=== PATIENT | female | born 1950 | race Caucasian/White ===

== ENCOUNTER 2018-03-23 08:39 | Emergency (ER) | payer MEDICARE, OTHER ==
[2018-03-23 09:03] VITALS: BP 166/71
[2018-03-23] MEDS ORDERED: Take Home: Acetaminophen/HYDROcodone 325-10 MG, 5 Tab Pack PO ONE (09:09)
--- NOTE | 2018-03-23 09:15 | EDM.PDOC ---
ED HPI GENERAL MEDICAL PROBLEM - General Chief Complaint: Lower Extremity Injury/Pain Stated Complaint: HIP/KNEE PAIN L Time Seen by Provider: 03/23/18 09:02 Source of Information: Reports: Patient, Old Records, RN, RN Notes Reviewed History Limitations: Reports: No Limitations - History of Present Illness INITIAL COMMENTS - FREE TEXT/NARRATIVE: Patient presents to the ED at [facility] with exacerbation of chronic left hip and knee pain. She states she has been taking OTC medications without much relief of her pain. She has had hip injections in the past which seem to work ok. Her last injection was December 2017. She states she is overdue for an injection. She denies any trouble with ambulation. No bowel or bladder problems. She denies any numbness, tingling, or paresthesia to any extremity. She states she know she needs a hip replacement in the near future. Otherwise, no concerns. She would like her pain medication refilled today until she can get in and see her Primary. Duration: Chronic Left Hip Pain Score (Numeric/FACES): 6 - Related Data Allergies Allergy/AdvReac Type Severity Reaction Status Date / Time atorvastatin calcium Allergy Muscle Verified 03/23/18 09:06 [From Lipitor] Aches codeine Allergy Rash Verified 03/23/18 09:06 Penicillins Allergy Rash Verified 03/23/18 09:06 Sulfa (Sulfonamide Allergy Rash Verified 03/23/18 09:06 Antibiotics) Home Meds: Home Meds Albuterol [Ventolin HFA] 2 puff Q4H PRN 11/09/14 [History] Aspirin [Halfprin] 81 mg PO DAILY 11/09/14 [History] Calcium Carbonate/Vitamin D3 [Calcium 500-Vit D3 400 Tablet] 1 tab DAILY [History] Citalopram Hydrobromide [Celexa] 20 mg PO DAILY 11/09/14 [History] Fluticasone Propionate [Flonase] 2 sprays DAILY 11/09/14 [History] Fluticasone/Salmeterol [Advair 100-50] 1 puff DAILY 11/09/14 [History] Glucosamine/D3/[place]oswellia Yeni [Glucosamine Complex Tablet] 1 tab DAILY [History] Hydrocodone/Acetaminophen [[place] 10-325] 1 tab Q4H PRN 11/09/14 [History] Lisinopril 1 tab DAILY 11/09/14 [History] Montelukast Sodium [Singulair] 1 tab DAILY 11/09/14 [History] Multivitamin with Minerals [Multiple Vitamin] 1 tab DAILY 11/09/14 [History] [place]-3 Fatty Acids [[place]-3] 1 tab DAILY 11/09/14 [History] Simvastatin [Zocor] 20 mg PO DAILY 11/09/14 [History] hydroCHLOROthiazide [Hydrochlorothiazide] 12.5 mg PO DAILY 11/09/14 [History] Albuterol/Ipratropium [DuoNeb 3.0-0.5 MG/3 ML] 3 ml .XX Q8HR #30 neb 05/22/15 [ Rx] Albuterol/Ipratropium [DuoNeb 3.0-0.5 MG/3 ML] 3 ml NEB ONETIME #1 neb 05/22/15 [Rx] predniSONE [Prednisone] 40 mg PO DAILY #7 tab.ds.pk 05/22/15 [Rx] Past Medical History 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 Denies: Numbness, Paresthesia, Tingling ED EXAM, GENERAL - Physical Exam Exam: See Below Exam Limited By: No Limitations General Appearance: Alert, No Apparent Distress Respiratory/Chest: No Respiratory Distress, Lungs Clear, Normal Breath Sounds Cardiovascular: Normal Peripheral Pulses, Regular Rate, Rhythm Back Exam: Normal Inspection Extremities: Normal Inspection Neurological: Alert, Oriented Skin Exam: Warm, Dry, Intact, Normal Color Course - Vital Signs Last Recorded V/S: Last Vital Signs Temp 37.1 C 03/23/18 08:45 Pulse 72 03/23/18 08:45 Resp 18 03/23/18 08:45 BP 166/71 H 03/23/18 08:45 Pulse Ox 96 08/12/18 08:45 - Orders/Labs/Meds Orders: Active Orders 24 hr Category Date Time Status Acetaminophen/HYDROcodone [Take Home: Acetaminophen/ Med 03/23/18 09:09 Once HYDROcodone 325-10MG] 1 packet PO ONETIME ONE Departure - Departure Time of Disposition: 09:15 Disposition: Home, Self-Care 01 Condition: Good Clinical Impression: Chronic pain syndrome, Arthritis of left hip, Arthritis of knee, left - Discharge Information *PRESCRIPTION DRUG MONITORING PROGRAM REVIEWED*: Yes *COPY OF PRESCRIPTION DRUG MONITORING REPORT IN PATIENT KARRIE: Yes Instructions: Osteoarthritis, Chronic Pain, Adult, Acetaminophen; Hydrocodone tablets or capsules Referrals: Ericka Manuel [employer] [Ordering Only Provider] - Additional Instructions: 1. Stay well hydrated 2. Rest and relax today 3. See your Primary as symptoms warrant 4. Call us with any questions or concerns - Problem List Review Problem List Initiated/Reviewed/Updated: Yes - My Orders Last 24 Hours: My Active Orders 03/23/18 09:09 Acetaminophen/HYDROcodone [Take Home: Acetaminophen/HYDROcodone 325-10MG] 1 packet PO ONETIME ONE - Assessment/Plan Last 24 Hours: My Active Orders 03/23/18 09:09 Acetaminophen/HYDROcodone [Take Home: Acetaminophen/HYDROcodone 325-10MG] 1 packet PO ONETIME ONE Assessment:: Acute on Chronic Pain Syndrome Left hip Osteoarthritis Primary arthritis of left knee Plan: Will give a one time refill of narcotic pain medication. Patient states she will contact her PCP tomorrow for additional assistance. Recommend rest and relaxation today.
== END 2018-03-23 09:27 | disposition home or self-care (01) ==
LOC: VM.ED 08:39
DX: G89.4 Chronic pain syndrome (principal); M16.12 Unilateral primary osteoarthritis, left hip; M17.12 Unilateral primary osteoarthritis, left knee; Z79.82 Long term (current) use of aspirin; Z79.899 Other long term (current) drug therapy; Z88.0 Allergy status to penicillin; Z88.2 Allergy status to sulfonamides; Z88.5 Allergy status to narcotic agent; Z88.8 Allergy status to other drugs, medicaments and biological substances
CPT/HCPCS: 99282; 99283; A9270

== ENCOUNTER 2021-03-07 12:28 | Emergency (ER) | payer MEDICARE, OTHER ==
[2021-03-07] MEDS ORDERED: Sodium Chloride 0.9% 10 ML Syringe FLUSH PRN (12:40)
[2021-03-07] MEDS: Nitroglycerin 0.4 MG Tab.SL SL ONE ×2 (12:52→15:13)
[2021-03-07] MEDS: Sodium Chloride 0.9% 1,000 ML IV SCH (12:52)
--- NOTE | 2021-03-07 12:57 | EDM.PDOC ---
ED HPI GENERAL MEDICAL PROBLEM - General Time Seen by Provider: 03/07/21 12:52 Source of Information: Reports: Patient, EMS History Limitations: Reports: No Limitations - History of Present Illness INITIAL COMMENTS - FREE TEXT/NARRATIVE: Pt. presents to ER with complaints of anterior chest pain with radiation into her R posterolateral mid chest. Pt. states that she had been outside at onset of symptoms. States that she walked a short distance to her car, otherwise denies any other exertion. She states that the discomfort was acute in onset. She states that the discomfort is constant and not made worse with palpation. Denies any radiation into the jaw, arms, or neck. She states that she is nauseated. She was diaphoretic, but the temperature today in in the 90s. EMS was summoned. 12 lead EKG was performed and did not show any acute ST or T wave abnormality. Pt. did take aspirin at home. EMS gave the patient nitro which helped with the discomfort. She states that she has not recently been ill. Denies any cough or chest congestion. No sore throat or rhinorrhea. She states that she has not had any cough or chest congestion. She has a history of asthma but states that this has been stable recently. Pt. denies any history of similar pain in the past. Denies any cardiac history. It does not appear that she has ever had a stress test, and I am unable to locate an old EKG in either her clinic or ER chart. Onset: Today Onset Date: 03/07/21 Location: Reports: Chest, Back Quality: Reports: Ache, Pressure Associated Symptoms: Reports: Chest Pain, Diaphoresis. Denies: Cough, Fever/Chills - Related Data Allergies Allergy/AdvReac Type Severity Reaction Status Date / Time codeine Allergy Rash Verified 03/23/18 09:06 Penicillins Allergy Rash Verified 03/23/18 09:06 Sulfa (Sulfonamide Allergy Rash Verified 03/23/18 09:06 Antibiotics) atorvastatin calcium AdvReac Muscle Verified 03/07/21 13:51 [From Lipitor] Aches Home Meds: Home Meds Albuterol [Ventolin HFA] 2 puff IH Q4H PRN 11/09/14 [History] Aspirin [Halfprin] 81 mg PO DAILY 11/09/14 [History] Calcium Carbonate/Vitamin D3 [Calcium 500-Vit D3 400 Tablet] 1 tab PO DAILY 11/09/14 [History] Citalopram Hydrobromide [Celexa] 20 mg PO DAILY 11/09/14 [History] Fluticasone Propionate [Flonase] 2 sprays IN DAILY 11/09/14 [History] Glucosamine/D3/Boswellia Yeni [Glucosamine Complex Tablet] 1 tab PO DAILY 11/09/14 [History] Hydrocodone/Acetaminophen [[place] 10-325] 1 tab PO Q4H PRN 11/09/14 [History] Montelukast Sodium [Singulair] 1 tab PO DAILY 11/09/14 [History] Multivitamin with Minerals [Multiple Vitamin] 1 tab PO DAILY 11/09/14 [History] [place]-3 Fatty Acids [[place]-3] 1 tab PO DAILY 11/09/14 [History] Simvastatin [Zocor] 20 mg PO DAILY 11/09/14 [History] hydroCHLOROthiazide [Hydrochlorothiazide] 12.5 mg PO DAILY 11/09/14 [History] Albuterol/Ipratropium [DuoNeb 3.0-0.5 MG/3 ML] 3 ml .XX Q8HR #30 neb 05/22/15 [Rx] Acetaminophen [Tylenol Extra Strength] 500 mg PO Q6H 03/23/18 [History] Budesonide/Formoterol Fumarate [Symbicort 160-4.5 Mcg Inhaler] 2 puff IH BID 03/23/18 [History] Ibuprofen [Advil] 400 mg PO Q6H 03/23/18 [History] amLODIPine Besylate [Norvasc] 10 mg PO DAILY 03/23/18 [History] Past Medical History Cardiovascular History: Reports: High Cholesterol, Hypertension Respiratory History: Reports: Asthma, Sleep Apnea 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 removed due to cysts Musculoskeletal History: Reports: Arthritis, Osteoarthritis Other Musculoskeletal History: cortisone injections to left hip every 3 months Psychiatric History: Reports: Anxiety, Depression Endocrine/Metabolic History: Reports: Obesity/BMI 30+ - Past Surgical History Other HEENT Surgeries/Procedures: sinus surgery Social & Family History - Living Situation & Occupation Occupation: Retired ED ROS GENERAL - Review of Systems Review Of Systems: See Below Constitutional: Reports: No Symptoms HEENT: Reports: No Symptoms Respiratory: Denies: Shortness of Breath, Wheezing, Cough Cardiovascular: Reports: Chest Pain. Denies: Dyspnea on Exertion, Lightheadedness, Orthopnea, Palpitations Endocrine: Reports: No Symptoms GI/Abdominal: Reports: No Symptoms : Reports: No Symptoms Musculoskeletal: Reports: Back Pain Skin: Reports: No Symptoms Neurological: Reports: No Symptoms Psychiatric: Reports: No Symptoms Hematologic/Lymphatic: Reports: No Symptoms Immunologic: Reports: No Symptoms ED EXAM, GENERAL - Physical Exam Exam: See Below Exam Limited By: No Limitations General Appearance: Alert, WD/WN, No Apparent Distress Head: Atraumatic, Normocephalic Neck: Normal Inspection, Supple, Non-Tender Respiratory/Chest: No Respiratory Distress, Lungs Clear, Normal Breath Sounds, No Accessory Muscle Use, Chest Non-Tender Cardiovascular: Normal Peripheral Pulses, Regular Rate, Rhythm, No JVD, No Murmur, No Rub Peripheral Pulses: 4+: Radial (L) GI/Abdominal: Soft, Non-Tender, No Distention, No Mass (Female) Exam: Deferred Rectal (Female) Exam: Deferred Extremities: Normal Inspection, Normal Range of Motion, Non-Tender, No Pedal Edema, Normal Capillary Refill Neurological: Alert, Oriented, CN II-XII Intact, Normal Cognition, Normal Reflexes, No Motor/Sensory Deficits Psychiatric: Normal Affect, Normal Mood Skin Exam: Warm, Dry, Intact, Normal Color, No Rash Lymphatic: No Adenopathy #1 Interpretation Rhythm: NSR [place]: Normal P-Wave: Present QRS: Normal ST-T: Normal QT: Normal Course - Vital Signs Last Recorded V/S: Last Vital Signs Temp Pulse Resp BP 150/74 H 03/07/21 12:52 Pulse Ox - Orders/Labs/Meds Orders: Active Orders 24 hr Category Date Time Status EKG Documentation Completion [RC] STAT Care 03/07/21 12:40 Active Sodium Chloride 0.9% [Normal Saline] 1,000 ml Med 03/07/21 13:00 Active IV ASDIRECTED Sodium Chloride 0.9% [Saline Flush] Med 03/07/21 12:40 Active 10 ml FLUSH ASDIRECTED PRN Peripheral IV Insertion Adult [OM.PC] Routine Oth 03/07/21 12:41 Ordered Medication Orders Sodium Chloride (Normal Saline) 1,000 mls @ 500 mls/hr IV ASDIRECTED [facility] Last Admin: 03/07/21 12:52 Dose: 500 mls/hr Documented by: AMPARO Sodium Chloride (Sodium Chloride 0.9% 10 Ml Syringe) 10 ml FLUSH ASDIRECTED PRN PRN Reason: Keep Vein Open Labs: Laboratory Tests 03/07/21 03/07/21 03/07/21 Range/Units 12:55 12:55 12:55 WBC 7.0 (4.0-10.0) x10^3/uL RBC 4.50 (4.00-5.50) x10^6/uL Hgb 14.0 (12.0-16.0) g/dL Hct 41.6 (33.0-47.0) % MCV 92.4 (78.0-93.0) fL MCH 31.1 (26.0-32.0) pg MCHC 33.7 (32.0-36.0) g/dL RDW Coeff of [place] 12.8 (10.0-15.0) % Plt Count 230 (130-400) x10^3/uL Neut % (Auto) 67.2 (50.0-80.0) % Lymph % (Auto) 24.5 L (25.0-50.0) % [place] % (Auto) 6.9 (2.0-11.0) % Eos % (Auto) 1.3 (0.0-4.0) % Baso % (Auto) 0.1 L (0.2-1.2) % PT 10.4 (9.9-12.5) SEC INR 0.9 L (2.0-3.5) APTT (25.6-32.8) SEC D-Dimer, Quantitative 0.39 (<=0.58) mg/LFEU Sodium 138 (136-145) mmol/L Potassium 3.6 (3.5-5.1) mmol/L Chloride 104 (98-107) mmol/L Carbon Dioxide 26 (21-32) mmol/L Anion Gap 11.6 (5-15) mmol/L BUN 12 (7-18) mg/dL Creatinine 0.8 (0.55-1.02) mg/dL Est Cr Clr Drug Dosing TNP Estimated GFR (MDRD) > 60 Glucose 104 H (70-99) mg/dL Calcium 9.2 (8.5-10.1) mg/dL Corrected Calcium 9.5 (8.5-10.1) mg/dL Magnesium 2.0 (1.8-2.4) mg/dL Total Bilirubin 0.5 (0.2-1.0) mg/dL AST 16 (15-37) U/L ALT 9 L (14-59) U/L Alkaline Phosphatase 116 (46-116) U/L Troponin I High Sens 5 (<=51) ng/L C-Reactive Protein < 0.2 (<=0.9) mg/dL Total Protein 7.4 (6.4-8.2) g/dL Albumin 3.6 (3.4-5.0) g/dL Globulin 3.8 Albumin/Globulin Ratio 0.95 07/27/21 Range/Units 12:55 WBC (4.0-10.0) x10^3/uL RBC (4.00-5.50) x10^6/uL Hgb (12.0-16.0) g/dL Hct (33.0-47.0) % MCV (78.0-93.0) fL MCH (26.0-32.0) pg MCHC (32.0-36.0) g/dL RDW Coeff of [place] (10.0-15.0) % Plt Count (130-400) x10^3/uL Neut % (Auto) (50.0-80.0) % Lymph % (Auto) (25.0-50.0) % [place] % (Auto) (2.0-11.0) % Eos % (Auto) (0.0-4.0) % Baso % (Auto) (0.2-1.2) % PT (9.9-12.5) SEC INR (2.0-3.5) APTT 29.7 (25.6-32.8) SEC D-Dimer, Quantitative (<=0.58) mg/LFEU Sodium (136-145) mmol/L Potassium (3.5-5.1) mmol/L Chloride (98-107) mmol/L Carbon Dioxide (21-32) mmol/L Anion Gap (5-15) mmol/L BUN (7-18) mg/dL Creatinine (0.55-1.02) mg/dL Est Cr Clr Drug Dosing Estimated GFR (MDRD) Glucose (70-99) mg/dL Calcium (8.5-10.1) mg/dL Corrected Calcium (8.5-10.1) mg/dL Magnesium (1.8-2.4) mg/dL Total Bilirubin (0.2-1.0) mg/dL AST (15-37) U/L ALT (14-59) U/L Alkaline Phosphatase (46-116) U/L Troponin I High Sens (<=51) ng/L C-Reactive Protein (<=0.9) mg/dL Total Protein (6.4-8.2) g/dL Albumin (3.4-5.0) g/dL Globulin Albumin/Globulin Ratio Meds: Medications Generic Name Dose Route Start Last Admin Trade Name Freq PRN Reason Stop Dose Admin Sodium Chloride 1,000 mls @ 500 mls/hr 03/07/21 13:00 03/07/21 12:52 Normal Saline IV 500 mls/hr ASDIRECTED DEVANTE Administration Sodium Chloride 10 ml 03/07/21 12:40 Sodium Chloride 0.9% 10 Ml Syringe FLUSH ASDIRECTED PRN Keep Vein Open Discontinued Medications Generic Name Dose Route Start Last Admin Trade Name Freq PRN Reason Stop Dose Admin Morphine Sulfate 4 mg 03/07/21 13:02 03/07/21 13:08 Morphine 4 Mg/Ml Syringe IVPUSH 03/07/21 13:03 4 mg ONETIME ONE Administration Nitroglycerin 0.4 mg 03/07/21 12:46 03/07/21 12:52 Nitroglycerin 0.4 Mg Tab.[facility] 03/07/21 12:47 0.4 mg ONETIME ONE Administration Nitroglycerin 0.4 mg 03/07/21 13:40 Nitroglycerin 0.4 Mg Tab.[facility] 03/07/21 13:41 ONETIME ONE Ondansetron HCl 4 mg 03/07/21 12:57 03/07/21 13:03 Ondansetron 4 Mg/2 Ml Sdv IVPUSH 03/07/21 12:58 4 mg ONETIME ONE Administration - Radiology Interpretation Free Text/Narrative:: chest x-ray negative for acute pathology Departure - Departure Time of Disposition: 13:58 Disposition: DC/Tfer to Acute Hospital 02 Clinical Impression: Unstable angina - Discharge Information Referrals: Ericka Manuel NP [Primary Care Provider] - Sepsis Event Note (ED) - Focused Exam Vital Signs: Vital Signs BP 03/07/21 12:52 150/74 H - Problem List Review Problem List Initiated/Reviewed/Updated: Yes - My Orders Last 24 Hours: My Active Orders 03/07/21 12:40 EKG Documentation Completion [RC] STAT Sodium Chloride 0.9% [Saline Flush] 10 ml FLUSH ASDIRECTED PRN 03/07/21 12:41 Peripheral IV Insertion Adult [OM.PC] Routine 03/07/21 13:00 Sodium Chloride 0.9% [Normal Saline] 1,000 ml IV ASDIRECTED - Assessment/Plan Last 24 Hours: My Active Orders 03/07/21 12:40 EKG Documentation Completion [RC] STAT Sodium Chloride 0.9% [Saline Flush] 10 ml FLUSH ASDIRECTED PRN 03/07/21 12:41 Peripheral IV Insertion Adult [OM.PC] Routine 03/07/21 13:00 Sodium Chloride 0.9% [Normal Saline] 1,000 ml IV ASDIRECTED Plan: Pt. will be transferred to [facility] via [facility] ground ambulance. Pt. was accepted by Dr. Santos at [facility]. Pt. has had significant improvement in the chest pain with nitroglycerin. She will be started on a nitro drip at 10mcg/min. Will titrate to pain control. She was given a 4000u heparin bolus and started on a heparin drip at 1000u/hr. Discussed findings with patient and family who are in agreement with plan of care. All questions were answered.
[2021-03-07] MEDS: Ondansetron 4 MG/2 ML SDV IVPUSH ONE (13:03)
--- NOTE | 2021-03-07 13:04 | CR ---
[id number] RAD/RAD Chest PA or AP 1V EXAM: SINGLE VIEW CHEST. INDICATION: CHEST PAIN COMPARISON: NO PREVIOUS SIMILAR EXAM IS AVAILABLE FINDINGS: The lungs are clear The cardiomediastinal contour is moderately enlarged IMPRESSION: NO PNEUMONIA OR EDEMA Nilesh Crum MD 03/07/21 0948 Thank you for allowing us to participate in the care of your patient.
[2021-03-07] MEDS: Morphine 4 MG/ML Syringe IVPUSH ONE ×2 (13:08→14:30)
[2021-03-07 13:34] LABS: CHLORIDE,CL 104 mmol/L (98-107); SODIUM,NA 138 mmol/L (136-145)
[2021-03-07 13:36] LABS: ANION GAP 11.6 mmol/L (5-15)
[2021-03-07] MEDS: Heparin Sodium 5,000 Units/ML Vial IVPUSH ONE (14:02)
[2021-03-07] MEDS: Heparin Sodium/0.45% NaCl 25,000 UNITS/500 ML BAG IV SCH (14:02)
[2021-03-07] MEDS: Nitroglycerin/D5W 25 MG/250 ML BOTTLE IV SCH (14:09)
[2021-03-07] MEDS: Carbidopa/Levodopa 25-100 MG Tab PO ONE (14:09)
[2021-03-07 16:50] VITALS: BP 145/78; PULSE 59
== END 2021-03-07 14:50 | disposition short-term general hospital (02) ==
LOC: VM.ED 12:28
DX: I20.0 Unstable angina (principal); R07.89 Other chest pain; E78.00 Pure hypercholesterolemia, unspecified; I10 Essential (primary) hypertension; E66.9 Obesity, unspecified; Z68.33 Body mass index [BMI] 33.0-33.9, adult; Z88.0 Allergy status to penicillin; Z88.5 Allergy status to narcotic agent; Z88.2 Allergy status to sulfonamides; Z88.8 Allergy status to other drugs, medicaments and biological substances; Z79.82 Long term (current) use of aspirin; Z79.899 Other long term (current) drug therapy
CPT/HCPCS: 36415; 71045; 80053; 83735; 84484; 85025; 85379; 85610; 85730; 86140; 93005; 93010; 96365; 96375; 96376; 99284; 99285-25; A9270-GY; J1644; J2270; J2405; J3490; J7030

== ENCOUNTER 2021-07-18 06:24 | Emergency (ER) | payer MEDICARE, OTHER ==
--- NOTE | 2021-07-18 07:01 | EDM.PDOC ---
ED HPI GENERAL MEDICAL PROBLEM - General Chief Complaint: Chest Pain Stated Complaint: chest pain Time Seen by Provider: 07/18/21 06:45 Source of Information: Reports: Patient History Limitations: Reports: No Limitations - History of Present Illness INITIAL COMMENTS - FREE TEXT/NARRATIVE: Pt. presents to ER with complaints of L lateral chest and neck pain. Pt. states that the discomfort came on acutely this AM when she was taking her dog out. Pt. states that the discomfort was acute in nature and made it hard to take a deep breath. She had a pacemaker placement in L lateral chest on Saturday. She states that she has been experiencing some intermittent L arm pain since the Surgery. She did take nitro, and has had a total of 4 aspirin. She has not had anything else for pain. Denies any diaphoresis. No nausea or vomiting. 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: Aspirin, EKG, Nitroglycerin Left Posterior Thoracic Pain Score (Numeric/FACES): 3 - Related Data Allergies Allergy/AdvReac Type Severity Reaction Status Date / Time codeine Allergy Rash Verified 03/07/21 14:50 Penicillins Allergy Rash Verified 03/07/21 14:50 Sulfa (Sulfonamide Allergy Rash Verified 03/07/21 14:50 Antibiotics) atorvastatin calcium AdvReac Muscle Verified 03/07/21 14:50 [From Lipitor] Aches Home Meds: Home Meds Albuterol [Ventolin HFA] 2 puff IH Q4H PRN 11/09/14 [History] Aspirin [Halfprin] 81 mg PO DAILY 11/09/14 [History] Calcium Carbonate/Vitamin D3 [Calcium 500-Vit D3 400 Tablet] 1 tab PO DAILY 11/09/14 [History] Citalopram Hydrobromide [Celexa] 20 mg PO DAILY 11/09/14 [History] Fluticasone Propionate [Flonase] 2 sprays IN DAILY 11/09/14 [History] Glucosamine/D3/Boswellia Yeni [Glucosamine Complex Tablet] 1 tab PO DAILY 11/09/14 [History] Hydrocodone/Acetaminophen [[place] 10-325] 1 tab PO Q4H PRN 11/09/14 [History] Montelukast Sodium [Singulair] 1 tab PO DAILY 11/09/14 [History] Multivitamin with Minerals [Multiple Vitamin] 1 tab PO DAILY 11/09/14 [History] Linn-3 Fatty Acids [Linn-3] 1 tab PO DAILY 11/09/14 [History] Simvastatin [Zocor] 20 mg PO DAILY 11/09/14 [History] hydroCHLOROthiazide [Hydrochlorothiazide] 12.5 mg PO DAILY 11/09/14 [History] Albuterol/Ipratropium [DuoNeb 3.0-0.5 MG/3 ML] 3 ml .XX Q8HR #30 neb 05/22/15 [Rx] Acetaminophen [Tylenol Extra Strength] 500 mg PO Q6H 03/23/18 [History] Budesonide/Formoterol Fumarate [Symbicort 160-4.5 Mcg Inhaler] 2 puff IH BID 03/23/18 [History] Ibuprofen [Advil] 400 mg PO Q6H 03/23/18 [History] amLODIPine Besylate [Norvasc] 10 mg PO DAILY 03/23/18 [History] Past Medical History Cardiovascular History: Reports: High Cholesterol, Hypertension Respiratory History: Reports: Asthma, Sleep Apnea 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: 1 ovary removed due to cysts Musculoskeletal History: Reports: Arthritis, Osteoarthritis Other Musculoskeletal History: cortisone injections to left hip every 3 months Psychiatric History: Reports: Anxiety, Depression Endocrine/Metabolic History: Reports: Obesity/BMI 30+ - Past Surgical History Other HEENT Surgeries/Procedures: sinus surgery Social & Family History - Family History Family Medical History: No Pertinent Family History - Tobacco Use Tobacco Use Status *Q: Former Tobacco User Used Tobacco, but Quit: Yes Month/Year Tobacco Last Used: uNKNOWN - Recreational Drug Use Recreational Drug Use: Yes Recreational Drug Type: Reports: Marijuana/Hashish Recreational Drug Use Frequency: Weekly - Living Situation & Occupation Occupation: Retired ED ROS GENERAL - Review of Systems Review Of Systems: See Below Constitutional: Reports: No Symptoms HEENT: Reports: No Symptoms Respiratory: Reports: Shortness of Breath, Pleuritic Chest Pain Cardiovascular: Reports: Chest Pain Endocrine: Reports: No Symptoms GI/Abdominal: Reports: No Symptoms : Reports: No Symptoms Musculoskeletal: Reports: No Symptoms Skin: Reports: No Symptoms Neurological: Reports: No Symptoms Psychiatric: Reports: No Symptoms Hematologic/Lymphatic: Reports: No Symptoms Immunologic: Reports: No Symptoms ED EXAM, GENERAL - Physical Exam Exam: See Below Exam Limited By: No Limitations General Appearance: Alert, WD/WN, No Apparent Distress Throat/Mouth: Normal Lips, Normal Teeth, Normal Oropharynx, Normal Voice, No Airway Compromise Head: Atraumatic, Normocephalic Neck: Normal Inspection, Supple, Non-Tender, Full Range of Motion Respiratory/Chest: No Respiratory Distress, Lungs Clear, Normal Breath Sounds, No Accessory Muscle Use, Chest Non-Tender Cardiovascular: Normal Peripheral Pulses, Regular Rate, Rhythm, No Edema, No JVD, No Murmur Peripheral Pulses: 4+: Radial (L) GI/Abdominal: Soft, Non-Tender, No Distention, No Mass (Female) Exam: Deferred Rectal (Female) Exam: Normal Exam, Normal Rectal Tone Back Exam: Normal Inspection, Full Range of Motion Extremities: Normal Inspection, Normal Range of Motion, Non-Tender, No Pedal E dick, Normal Capillary Refill Neurological: Alert, Oriented, CN II-XII Intact, Normal Cognition, Normal Gait, Normal Reflexes, No Motor/Sensory Deficits Psychiatric: Normal Affect, Normal Mood Skin Exam: Warm, Dry, Intact, Normal Color, No Rash Lymphatic: No Adenopathy #1 Interpretation Rhythm: NSR [place] Neck: Normal P-Wave: Present QRS: Normal ST-T: Normal QT: Normal Course - Vital Signs Last Recorded V/S: Last Vital Signs Temp 36.9 C 07/18/21 06:34 Pulse 70 07/18/21 11:25 Resp 16 07/18/21 10:34 BP 139/73 07/18/21 11:25 Pulse Ox 100 07/18/21 10:34 - Orders/Labs/Meds Labs: Laboratory Tests 07/18/21 07/18/21 07/18/21 Range/Units 07:07 07:07 07:07 WBC 5.6 (4.0-10.0) x10^3/uL RBC 4.14 (4.00-5.50) x10^6/uL Hgb 12.9 (12.0-16.0) g/dL Hct 38.1 (33.0-47.0) % MCV 92.0 (78.0-93.0) fL MCH 31.2 (26.0-32.0) pg MCHC 33.9 (32.0-36.0) g/dL RDW Coeff of Cali 12.2 (10.0-15.0) % Plt Count 192 (130-400) x10^3/uL Immature Gran % (Auto) 0.00 (0.00-0.43) % Neut % (Auto) 72.0 (50.0-80.0) % Lymph % (Auto) 16.8 L (25.0-50.0) % Lake % (Auto) 8.1 (2.0-11.0) % Eos % (Auto) 2.9 (0.0-4.0) % Baso % (Auto) 0.2 (0.2-1.2) % Neut # (Auto) 4.0 (1.8-7.7) x10^3/uL Lymph # (Auto) 0.9 L (1.0-4.8) x10^3/uL Lake # (Auto) 0.5 (0.0-0.8) x10^3/uL Eos # (Auto) 0.2 (0.0-0.5) x10^3/uL Baso # (Auto) 0.0 (0.0-0.2) x10^3/uL Immature Gran # (Auto) 0.00 (0.00-0.07) x10^3/uL PT 10.0 (9.9-12.5) SEC INR 0.9 L (2.0-3.5) APTT (25.6-32.8) SEC D-Dimer, Quantitative (<=0.58) mg/LFEU Sodium 140 (136-145) mmol/L Potassium 3.5 (3.5-5.1) mmol/L Chloride 104 (98-107) mmol/L Carbon Dioxide 28 (21-32) mmol/L Anion Gap 11.5 (5-15) mmol/L BUN 13 (7-18) mg/dL Creatinine 0.8 (0.55-1.02) mg/dL Est Cr Clr Drug Dosing 47.97 mL/min Estimated GFR (MDRD) > 60 Glucose 103 H (70-99) mg/dL Calcium 9.4 (8.5-10.1) mg/dL Corrected Calcium 9.7 (8.5-10.1) mg/dL Phosphorus 3.8 (2.6-4.7) mg/dL Magnesium 2.2 (1.8-2.4) mg/dL Total Bilirubin 0.3 (0.2-1.0) mg/dL AST 17 (15-37) U/L ALT 37 (14-59) U/L Alkaline Phosphatase 106 (46-116) U/L Troponin I High Sens 10 (<=51) ng/L C-Reactive Protein 2.0 H (<=0.9) mg/dL Total Protein 6.8 (6.4-8.2) g/dL Albumin 3.6 (3.4-5.0) g/dL Globulin 3.2 Albumin/Globulin Ratio 1.13 07/18/21 Range/Units 07:07 WBC (4.0-10.0) x10^3/uL RBC (4.00-5.50) x10^6/uL Hgb (12.0-16.0) g/dL Hct (33.0-47.0) % MCV (78.0-93.0) fL MCH (26.0-32.0) pg MCHC (32.0-36.0) g/dL RDW Coeff of Cali (10.0-15.0) % Plt Count (130-400) x10^3/uL Immature Gran % (Auto) (0.00-0.43) % Neut % (Auto) (50.0-80.0) % Lymph % (Auto) (25.0-50.0) % Lake % (Auto) (2.0-11.0) % Eos % (Auto) (0.0-4.0) % Baso % (Auto) (0.2-1.2) % Neut # (Auto) (1.8-7.7) x10^3/uL Lymph # (Auto) (1.0-4.8) x10^3/uL Lake # (Auto) (0.0-0.8) x10^3/uL Eos # (Auto) (0.0-0.5) x10^3/uL Baso # (Auto) (0.0-0.2) x10^3/uL Immature Gran # (Auto) (0.00-0.07) x10^3/uL PT (9.9-12.5) SEC INR (2.0-3.5) APTT 28.5 (25.6-32.8) SEC D-Dimer, Quantitative 1.00 H (<=0.58) mg/LFEU Sodium (136-145) mmol/L Potassium (3.5-5.1) mmol/L Chloride (98-107) mmol/L Carbon Dioxide (21-32) mmol/L Anion Gap (5-15) mmol/L BUN (7-18) mg/dL Creatinine (0.55-1.02) mg/dL Est Cr Clr Drug Dosing mL/min Estimated GFR (MDRD) Glucose (70-99) mg/dL Calcium (8.5-10.1) mg/dL Corrected Calcium (8.5-10.1) mg/dL Phosphorus (2.6-4.7) mg/dL Magnesium (1.8-2.4) mg/dL Total Bilirubin (0.2-1.0) mg/dL AST (15-37) U/L ALT (14-59) U/L Alkaline Phosphatase (46-116) U/L Troponin I High Sens (<=51) ng/L C-Reactive Protein (<=0.9) mg/dL Total Protein (6.4-8.2) g/dL Albumin (3.4-5.0) g/dL Globulin Albumin/Globulin Ratio Meds: Medications Discontinued Medications Generic Name Dose Route Start Last Admin Trade Name Abnerq PRN Reason Stop Dose Admin Hydromorphone HCl 1 mg 07/18/21 08:12 07/18/21 08:16 Hydromorphone 1 Mg/Ml Syringe IVPUSH 07/18/21 08:13 1 mg ONETIME ONE Administration Hydromorphone HCl 1 mg 07/18/21 11:26 07/18/21 11:33 Hydromorphone 1 Mg/Ml Syringe IVPUSH 07/18/21 11:27 1 mg ONETIME ONE Administration Sodium Chloride 500 mls @ 500 mls/hr 07/18/21 09:05 07/18/21 09:15 Normal Saline IV 07/18/21 10:04 500 mls/hr ONETIME ONE Administration Iopamidol 54 ml 07/18/21 09:20 07/18/21 09:22 Iopamidol 755 Mg/Ml 100 Ml Bottle IVPUSH 07/18/21 09:21 54 ml ONETIME ONE Administration Ketorolac Tromethamine 15 mg 07/18/21 09:05 07/18/21 09:14 Ketorolac 15 Mg/Ml Sdv IVPUSH 07/18/21 09:06 15 mg ONETIME ONE Administration Morphine Sulfate 4 mg 07/18/21 07:07 07/18/21 07:17 Morphine 4 Mg/Ml Syringe IVPUSH 07/18/21 07:08 4 mg ONETIME ONE Administration - Radiology Interpretation Free Text/Narrative:: Chest x-ray reveals basilar atelectasis. Mild cardiomegaly without edema. No effusion or pneumothorax. CTA of chest obtained. No PE noted. It appears that the recently placed pacemaker lead has penetrated thru the R ventricular wall and the tip lies in the fat pad. No pericardial effusion noted. Departure - Departure Time of Disposition: 11:41 Disposition: DC/Tfer to [facility] 02 Clinical Impression: Complication associated with cardiac pacemaker lead - Discharge Information Referrals: Ericka Manuel, PSYCHOLOGIST COUNSELING [Primary Care Provider] - Forms: ED Department Discharge, Interfacility Transfer [facility] Sepsis Event Note (ED) - Evaluation Sepsis Screening Result: No Definite Risk - Focused Exam Vital Signs: Vital Signs Temp Pulse Resp BP Pulse Ox 07/18/21 11:25 70 139/73 07/18/21 10:34 60 16 135/63 100 07/18/21 09:43 60 16 136/68 07/18/21 08:55 60 16 132/62 07/18/21 08:00 62 16 111/67 98 07/18/21 07:05 64 16 145/78 H 97 07/18/21 06:34 36.9 C 62 14 153/80 H 97 - Problem List Review Problem List Initiated/Reviewed/Updated: Yes - Assessment/Plan Plan: Pt. will be transferred to [facility] ER for echocardiogram/further workup at the request of Dr. Hollis. She can have IV morphine or fentanyl as needed for continued discomfort enroute. She will be transported via [facility] ground ambulance. She is a code 1.
[2021-07-18] MEDS ORDERED: Morphine 4 MG/ML Syringe IVPUSH ONE (07:07)
[2021-07-18 07:32] LABS: CHLORIDE,CL 104 mmol/L (98-107); SODIUM,NA 140 mmol/L (136-145)
[2021-07-18 07:33] LABS: ANION GAP 11.5 mmol/L (5-15)
[2021-07-18 07:36] LABS: PTT,PARTIAL THROMBOPLSTIN TIME 28.5 SEC (25.6-32.8)
--- NOTE | 2021-07-18 08:04 | CR ---
[id number] RAD/RAD Chest PA or AP 1V EXAM: FRONTAL CHEST INDICATION: LEFT LATERAL CHEST PAIN. COMPARISON: March 07, 2021. DISCUSSION: Low lung volumes with basilar atelectasis. There is mild cardiomegaly without evidence of edema. No effusions or pneumothorax. IMPRESSION: 1. No acute findings. Daryn Bowser MD 07/18/21 0803 Thank you for allowing us to participate in the care of your patient.
[2021-07-18] MEDS ORDERED: HYDROmorphone 1 MG/ML Syringe IVPUSH ONE ×2 (08:12→11:26)
[2021-07-18] MEDS ORDERED: Ketorolac 15 MG/ML SDV IVPUSH ONE (09:05)
[2021-07-18] MEDS ORDERED: Sodium Chloride 0.9% 500 ML IV ONE (09:05)
[2021-07-18] MEDS ORDERED: Iopamidol 755 Mg/ML 100 ML Bottle IVPUSH ONE (09:20)
--- NOTE | 2021-07-18 10:23 | CT ---
[id number] CT/CTA Chest EXAM: CT ANGIOGRAM CHEST INDICATION: CHEST PAIN, POSITIVE D DIMER. COMPARISON: Chest radiograph same date. DISCUSSION: The pulmonary arteries are normal in appearance with no emboli identified. Low lung volumes with partial atelectasis of both lower lobes. Dependent groundglass opacification in the lung bases have a distribution and appearance most suggestive of volume loss, but in the context of COVID pneumonia could represent early infiltrates. Cardiomegaly. Left subclavian approach pacemaker leads tips RA and traversing the RV. The right ventricular lead appears to perforate the myocardium and extend past the myocardial wall and pericardial sac into the left pericardial fat pad. Scattered degenerative changes in the spine. The osseous structures are otherwise unremarkable. Small sliding type hiatus hernia. Results called at time of dictation. IMPRESSION: 1. Negative for pulmonary embolism. 2. Mild bilateral dependent groundglass opacities, favor volume loss over early infiltrates. No consolidation. 3. Apparent penetration of the right ventricular pacemaker lead through the apical myocardium into the pericardial fat pad. No associated fluid collections or other acute findings. Daryn Bowser MD 07/18/21 1022 Thank you for allowing us to participate in the care of your patient.
[2021-07-18 11:35] VITALS: BP 139/73; PULSE 70
== END 2021-07-18 12:05 | disposition short-term general hospital (02) ==
LOC: VM.ED 06:24
DX: T82.198A Other mechanical complication of other cardiac electronic device, initial encounter (principal); E78.00 Pure hypercholesterolemia, unspecified; I10 Essential (primary) hypertension; J45.909 Unspecified asthma, uncomplicated; M19.90 Unspecified osteoarthritis, unspecified site; E66.9 Obesity, unspecified; Z68.33 Body mass index [BMI] 33.0-33.9, adult; Z88.5 Allergy status to narcotic agent; Z88.0 Allergy status to penicillin; Z88.2 Allergy status to sulfonamides; Z88.8 Allergy status to other drugs, medicaments and biological substances; Z79.82 Long term (current) use of aspirin; Z79.899 Other long term (current) drug therapy; Z87.891 Personal history of nicotine dependence
CPT/HCPCS: 36415; 71045; 71275; 80053; 83735; 84100; 84484; 85025; 85379; 85610; 85730; 86140; 93010; 96374; 96375; 96376; 99284; 99285-25; J1170; J1885; J2270; J7030; Q9967

== ENCOUNTER 2022-05-19 10:16 | Emergency (ER) | payer MEDICARE, OTHER ==
[2022-05-19] MEDS: Ketorolac 30 MG/ML SDV IM ONE (11:52)
[2022-05-19 11:59] VITALS: BP 139/67; PULSE 73
== END 2022-05-19 12:13 | disposition home or self-care (01) ==
LOC: VM.ED 10:16
DX: M25.551 Pain in right hip (principal); E78.00 Pure hypercholesterolemia, unspecified; I10 Essential (primary) hypertension; E66.9 Obesity, unspecified; Z68.30 Body mass index [BMI] 30.0-30.9, adult; Z88.5 Allergy status to narcotic agent; Z88.0 Allergy status to penicillin; Z88.2 Allergy status to sulfonamides; Z88.8 Allergy status to other drugs, medicaments and biological substances; Z79.82 Long term (current) use of aspirin; Z79.899 Other long term (current) drug therapy
CPT/HCPCS: 96372; 99283; J1885

== ENCOUNTER 2023-12-19 09:36 | Emergency (ER) | payer MEDICARE, OTHER ==
[2023-12-19] MEDS ORDERED: Sodium Chloride 0.9% 10 ML Syringe FLUSH PRN (09:47)
[2023-12-19] MEDS ORDERED: Nitroglycerin 0.4 MG Tab.SL SL ONE (09:57)
[2023-12-19] MEDS: Nitroglycerin 0.4 MG Tab.SL SL ONE (09:59)
[2023-12-19 10:07] LABS: BASOPHILS PERCENT AUTO 0.4 % (0.2-1.2); EOSINOPHILS ABSOLUTE AUTO 0.1 x10^3/uL (0.0-0.5); EOSINOPHILS PERCENT AUTO 2.3 % (0.0-4.0); HEMATOCRIT 37.8 % (33.0-47.0); HEMOGLOBIN 12.8 g/dL (12.0-16.0); LYMPHOCYTES ABSOLUTE AUTO 0.9 x10^3/uL (1.0-4.8); MEAN CORPUSCULAR HEMOGLOBIN 30.7 pg (26.0-32.0); MEAN CORPUSCULAR HGB CONC 33.9 g/dL (32.0-36.0); MEAN CORPUSCULAR VOLUME 90.6 fL (78.0-93.0); MONOCYTES ABSOLUTE AUTO 0.6 x10^3/uL (0.0-0.8); MONOCYTES PERCENT AUTO 10.8 % (2.0-11.0); NEUTROPHILS ABSOLUTE AUTO 3.5 x10^3/uL (1.8-7.7); NEUTROPHILS PERCENT AUTO 68.5 % (50.0-80.0); PLATELET COUNT,PLT 201 x10^3/uL (130-400); RED BLOOD CELL COUNT 4.17 x10^6/uL (4.00-5.50); WHITE BLOOD CELL COUNT,WBC 5.2 x10^3/uL (4.0-10.0)
[2023-12-19] MEDS: Nitroglycerin/D5W 25 MG/250 ML BOTTLE IV SCH (10:08)
[2023-12-19 10:35] LABS: A/G RATIO 1.16; ALBUMIN 3.7 g/dL (3.4-5.0); ALKALINE PHOSPHATASE 105 U/L (46-116); ASPARTATE AMNIOTRANSFERASE,AST 25 U/L (15-37); BILIRUBIN TOTAL 0.4 mg/dL (0.2-1.0); BLOOD UREA NITROGEN,BUN 12 mg/dL (7-18); CALCIUM 9.4 mg/dL (8.5-10.1); CARBON DIOXIDE,CO2 23 mmol/L (21-32); CHLORIDE,CL 103 mmol/L (98-107); CREATININE 0.8 mg/dL (0.55-1.02); GLUCOSE RANDOM 113 mg/dL (70-99); MAGNESIUM 1.8 mg/dL (1.8-2.4); POTASSIUM,K 3.9 mmol/L (3.5-5.1); PRO B-TYPE NATRIUR PEPT,BNPPRO 137 pg/mL (<=450); PROTEIN TOTAL,TP 6.9 g/dL (6.4-8.2); SODIUM,NA 141 mmol/L (136-145)
[2023-12-19 10:39] LABS: ANION GAP 18.9 mmol/L (5-15); ESTIMATED GFR 77 mL/min (>=60)
[2023-12-19 11:12] LABS: ALANINE AMINOTRANSFERASE,ALT < 6 U/L (14-59)
[2023-12-19] MEDS: Heparin Sodium 5,000 Units/ML Vial IVPUSH ONE (11:38)
[2023-12-19] MEDS: Heparin Sodium/0.45% NaCl 25,000 UNITS/500 ML BAG IV SCH (11:39)
[2023-12-19 12:35] LABS: AMORPHOUS SEDIMENT,URINE RARE; APPEARANCE,URINE CLEAR (CLEAR); BACTERIA,URINE NOT SEEN /HPF (NOT SEEN); BILIRUBIN,URINE NEGATIVE (NEGATIVE); COLOR,URINE YELLOW (YELLOW); GLUCOSE,URINE NEGATIVE (NEGATIVE); KETONES,URINE NEGATIVE (NEGATIVE); LEUKOCYTE ESTERASE,URINE NEGATIVE (NEGATIVE); MUCUS,URINE NOT SEEN /LPF (NOT SEEN); NITRITE,URINE NEGATIVE (NEGATIVE); OCCULT BLOOD,URINE NEGATIVE (NEGATIVE); PH,URINE 6.5 (5.0-8.0); PROTEIN,URINE NEGATIVE (NEGATIVE); RBC,URINE NOT SEEN /HPF (NOT SEEN); SQUAMOUS EPITHELIAL CELLS,UR RARE /HPF (NOT SEEN); UROBILINOGEN,URINE 0.2 EU/dL (0.2); WBC,URINE NOT SEEN /HPF (NOT SEEN)
[2023-12-19] MEDS: fentaNYL 50 MCG/ML SDV IVPUSH ONE (13:05)
[2023-12-19 14:20] VITALS: BP 141/63; PULSE 64
== END 2023-12-19 13:20 | disposition short-term general hospital (02) ==
LOC: VM.ED 09:36
DX: I21.4 Non-ST elevation (NSTEMI) myocardial infarction (principal); I10 Essential (primary) hypertension; E78.00 Pure hypercholesterolemia, unspecified; J45.909 Unspecified asthma, uncomplicated; E66.9 Obesity, unspecified; Z79.82 Long term (current) use of aspirin; Z79.899 Other long term (current) drug therapy; Z88.8 Allergy status to other drugs, medicaments and biological substances; Z88.2 Allergy status to sulfonamides; Z88.5 Allergy status to narcotic agent; Z88.6 Allergy status to analgesic agent
CPT/HCPCS: 71045; 80053; 81001; 83735; 83880; 84484; 85025; 85610; 85730; 93005; 96365; 96366; 96368; 96375; 99285; J1644; J2305; J3010; 36415

== ENCOUNTER 2025-04-06 06:49 | Emergency (ER) | payer MEDICARE, OTHER ==
[2025-04-06 07:06] LABS: BASOPHILS ABSOLUTE AUTO 0.0 x10^3/uL (0.0-0.2); BASOPHILS PERCENT AUTO 0.5 % (0.2-1.2); EOSINOPHILS ABSOLUTE AUTO 0.2 x10^3/uL (0.0-0.5); EOSINOPHILS PERCENT AUTO 3.8 % (0.0-4.0); IMMATURE GRAN ABSOLUTE AUTO 0.00 x10^3/uL (0.00-0.07); IMMATURE GRAN PERCENT AUTO 0.00 % (0.00-0.43); LYMPHOCYTES ABSOLUTE AUTO 1.9 x10^3/uL (1.0-4.8); LYMPHOCYTES PERCENT AUTO 33.7 % (25.0-50.0); MONOCYTES ABSOLUTE AUTO 0.5 x10^3/uL (0.0-0.8); MONOCYTES PERCENT AUTO 9.1 % (2.0-11.0); NEUTROPHILS ABSOLUTE AUTO 2.9 x10^3/uL (1.8-7.7); NEUTROPHILS PERCENT AUTO 52.9 % (50.0-80.0); PLATELET COUNT,PLT 220 x10^3/uL (130-400); RED BLOOD CELL COUNT 4.36 x10^6/uL (4.00-5.50); WHITE BLOOD CELL COUNT,WBC 5.5 x10^3/uL (4.0-10.0)
[2025-04-06] MEDS: Nitroglycerin 0.4 MG Tab.SL SL ONE (07:31)
[2025-04-06 07:39] LABS: A/G RATIO 1.27; ALANINE AMINOTRANSFERASE,ALT 22.0 U/L (14-59); ASPARTATE AMNIOTRANSFERASE,AST 24.0 U/L (15-37); BILIRUBIN TOTAL 0.4 mg/dL (0.2-1.0); BLOOD UREA NITROGEN,BUN 11.0 mg/dL (7-18); CARBON DIOXIDE,CO2 30.0 mmol/L (21-32); CHLORIDE,CL 104.0 mmol/L (98-107); CREATININE 0.9 mg/dL (0.55-1.02); EST CRCL DRUG DOSING (CG) 40.13 mL/min; GLUCOSE RANDOM 105.0 mg/dL (70-99); POTASSIUM,K 4.4 mmol/L (3.5-5.1); PRO B-TYPE NATRIUR PEPT,BNPPRO 61.0 pg/mL (<=450); PROTEIN TOTAL,TP 6.8 g/dL (6.4-8.2); SODIUM,NA 142.0 mmol/L (136-145)
[2025-04-06 07:40] LABS: ESTIMATED GFR 66.0 mL/min (>=60)
[2025-04-06 20:45] VITALS: BP 116/70; PULSE 68
== END 2025-04-06 09:55 | disposition home or self-care (01) ==
LOC: VM.ED 06:49 → SUPCPDRO 06:49 → VM.ED 09:55
DX: R07.9 Chest pain, unspecified (principal); I10 Essential (primary) hypertension; E78.00 Pure hypercholesterolemia, unspecified; M19.90 Unspecified osteoarthritis, unspecified site; E66.9 Obesity, unspecified; Z88.8 Allergy status to other drugs, medicaments and biological substances; Z88.0 Allergy status to penicillin; Z88.2 Allergy status to sulfonamides; Z79.899 Other long term (current) drug therapy; Z79.82 Long term (current) use of aspirin
CPT/HCPCS: 36415; 71045; 80053; 83735; 83880; 84484; 85025; 93005; 93010; 99284; 99285; A9270